=== PATIENT | male | born 1950 | race Caucasian/White ===

== ENCOUNTER 2017-02-01 16:54 | Emergency (ER) | payer OTHER ==
[~2017-02-01] VITALS: Ht 172.7 cm; Wt 76.0 kg
[~2017-02-01 16:54] MED LIST: ASPI-1061 PO; BUSP10TA23 PO; COMB5OS OS; CYCL10 PO; ERGO500013 PO; FLUO-191 PO; HYDR25TA PO; INSLAN SQ; LOSA50TA37 PO; METF850T2 PO; TIMO10DR28 OU
[2017-02-01 18:16] LABS: GLUCOSE,POINT OF CARE 263 MG/DL (70-110)
[2017-02-01 21:14] VITALS: BP 159/105
== END 2017-02-01 21:19 | disposition home or self-care (01) ==
LOC: EMS 16:55
DX: S06.0X0A Concussion without loss of consciousness, initial encounter (principal); S93.411A Sprain of calcaneofibular ligament of right ankle, initial encounter; E11.65 Type 2 diabetes mellitus with hyperglycemia; I10 Essential (primary) hypertension; I25.2 Old myocardial infarction; Z91.14 Patient's other noncompliance with medication regimen; Z79.4 Long term (current) use of insulin; Z88.0 Allergy status to penicillin; W01.10XA Fall on same level from slipping, tripping and stumbling with subsequent striking against unspecified object, initial encounter; Y93.89 Activity, other specified; Y92.89 Other specified places as the place of occurrence of the external cause; Y99.8 Other external cause status
CPT/HCPCS: 70450; 82962; 99284

== ENCOUNTER 2017-03-15 11:28 | Emergency (ER) | payer OTHER ==
[~2017-03-15] VITALS: Ht 172.7 cm; Wt 79.5 kg
[2017-03-15 12:07] LABS: GLUCOSE COMMENT 1 Repeated; GLUCOSE,POINT OF CARE 432 MG/DL (70-110)
[2017-03-15] MEDS ORDERED: INSULIN REGULAR, HUMAN 100 UNITS/ML IVP ONE (12:30)
[2017-03-15] MEDS ORDERED: ACETAMINOPHEN 325 MG TABLET PO ONE (12:30)
[2017-03-15] MEDS ORDERED: SODIUM CHLORIDE 0.9% 1,000 ML IV ONE (12:30)
[2017-03-15 12:54] LABS: ANION GAP 7 mmol/L (8-16); CALCIUM, TOTAL 8.9 mg/dL (8.8-10.5); CARBON DIOXIDE 32 mmol/L (22-29); CHLORIDE 98 mmol/L (98-107); GLOMERULAR FILTR. RATE CALC > 60 mL/min (>60); SODIUM SERUM 137 mmol/L (136-145); UREA NITROGEN, BLOOD 16 mg/dL (7-18)
[2017-03-15 14:47] LABS: GLUCOSE,POINT OF CARE 206 MG/DL (70-110)
[2017-03-15 15:28] VITALS: BP 147/89
== END 2017-03-15 15:31 | disposition home or self-care (01) ==
LOC: EMS 11:29
DX: S83.91XA Sprain of unspecified site of right knee, initial encounter (principal); S91.001A Unspecified open wound, right ankle, initial encounter; E11.65 Type 2 diabetes mellitus with hyperglycemia; I10 Essential (primary) hypertension; I25.2 Old myocardial infarction; Z79.4 Long term (current) use of insulin; Z88.0 Allergy status to penicillin; X58.XXXA Exposure to other specified factors, initial encounter; Y93.89 Activity, other specified; Y92.89 Other specified places as the place of occurrence of the external cause; Y99.8 Other external cause status
CPT/HCPCS: 36415; 73562; 80048; 82948; 82962; 96361; 96374; 99285; J1815; J7030

== ENCOUNTER 2020-01-08 18:41 | Inpatient (IN) | payer MEDICARE, OTHER ==
[~2020-01-08] VITALS: Ht 182.9 cm; Wt 93.6 kg
[~2020-01-08 18:41] MED LIST changes: +AMLO5TAB9 PO; -ASPI-1061 PO; +ASPI81TA87 PO; -BUSP10TA23 PO; +CLIN300C3 PO; -COMB5OS OS; +COMB5OS OU; -CYCL10 PO; +DOXY100C PO; +DULO60CA44 PO; -ERGO500013 PO; -FLUO-191 PO; +FOLI1 PO; +GABA-531 PO; +HYDR-1475 PO; -HYDR25TA PO; -INSLAN SQ; +INSU100V12 SQ; +LOSA-88 PO; -LOSA50TA37 PO; +METF-445 PO; -METF850T2 PO; +MULT-248 PO; +NAPR-1025 PO; +THIA100T67 PO; -TIMO10DR28 OU
[2020-01-08] MEDS ORDERED: SODIUM CHLORIDE 0.9% 3,000 ML IV ONE (18:56)
[2020-01-08] MEDS ORDERED: 0.9% SODIUM CHLORIDE 10 ML SYRINGE IVP PRN (19:00)
[2020-01-08] MEDS ORDERED: COMB5OS OU (19:16)
[2020-01-08] MEDS ORDERED: ATOR40TA28 PO (19:16)
[2020-01-08] MEDS ORDERED: INSU100I3 SQ (19:16)
[2020-01-08] MEDS ORDERED: TICA90TA PO (19:16)
[2020-01-08] MEDS ORDERED: GUAIF10 PO (19:16)
[2020-01-08] MEDS ORDERED: BUPR200T34 PO (19:16)
[2020-01-08] MEDS ORDERED: PRAZ2 PO (19:16)
[2020-01-08] MEDS ORDERED: INSU100V12 SQ (19:16)
[2020-01-08] MEDS ORDERED: TRAM50TA4 PO (19:16)
[2020-01-08 19:41] LABS: BASOPHILS % (AUTO) 0.6 % (0.0-2.0); EOSINOPHILS % (AUTO) 0.1 % (1.0-6.0); HEMATOCRIT 39.7 % (41-53); HEMOGLOBIN 13.2 g/dL (13.5-17.5); LYMPHOCYTES # (AUTO) 0.9 K/uL (1.0-4.8); LYMPHOCYTES % (AUTO) 7.9 % (22.0-44.0); MEAN CORPUSCULAR HGB CONC 33.3 G/dL (31.0-37.0); MEAN CORPUSCULAR VOLUME 96 fL (80-100); MONOCYTES # (AUTO) 1.4 K/uL (0.1-1.0); MONOCYTES % (AUTO) 11.6 % (2.0-9.0); NEUTROPHILS # (AUTO) 9.4 K/uL (1.8-7.7); NEUTROPHILS % (AUTO) 79.8 % (40.0-70.0); PLATELET COUNT (AUTO) 179 K/uL (150-450); RED BLOOD CELL COUNT(AUTO) 4.13 MIL/uL (4.50-5.90); RED CELL DISTRIBUTION WIDTH 14.4 % (11.5-14.5)
[2020-01-08 19:50] LABS: ANION GAP 9 mmol/L (8-16); CALCIUM, TOTAL 9.3 mg/dL (8.8-10.5); CARBON DIOXIDE 29 mmol/L (22-29); CHLORIDE 94 mmol/L (98-107); CREATININE 1.44 mg/dL (0.60-1.30); GLOMERULAR FILTR. RATE CALC 49 mL/min (>60); GLUCOSE,RANDOM 118 mg/dL (70-110); POTASSIUM 4.1 mmol/L (3.5-5.1); SODIUM SERUM 132 mmol/L (136-145); UREA NITROGEN, BLOOD 27 mg/dL (7-18)
[2020-01-08 19:56] LABS: INR 1.1 (0.9-1.1); PROTHROMBIN TIME 11.6 SEC (9.4-11.6)
[2020-01-08 20:02] LABS: LACTIC ACID 2.8 mmol/L (0.4-2.0)
[2020-01-08 20:08] LABS: B-TYPE NATRIURETIC PEPTIDE 157 pg/mL (0-100)
[2020-01-08] MEDS ORDERED: LEVOFLOXACIN 750 MG/D5% WATER 150 ML IV ONE (20:15)
[2020-01-08 20:16] LABS: ALANINE AMINOTRANSFERASE 20 U/L (12-78); ALBUMIN 3.2 g/dL (3.4-5.0); ALKALINE PHOSPHATASE 70 U/L (46-116); ASPARTATE AMINOTRANSFERASE 18 U/L (15-37); BILIRUBIN,TOTAL 0.7 mg/dL (0.1-1.0); CREATINE KINASE, TOTAL ONLY 78 U/L (39-308); TOTAL PROTEIN, SERUM 7.2 g/dL (6.4-8.2)
[2020-01-08 20:44] LABS: INFLUENZA TYPE A NEGATIVE FOR TYPE A (NEGATIVE); INFLUENZA TYPE B NEGATIVE FOR TYPE B (NEGATIVE)
[2020-01-08] MEDS ORDERED: ACETAMINOPHEN 325 MG TABLET PO PRN (20:45)
[2020-01-08] MEDS ORDERED: DEXTROSE 50%-WATER 25 GM/50 ML SYRINGE IVP PRN (20:45)
[2020-01-08] MEDS ORDERED: SODIUM CHLORIDE 0.45% 1,000 ML IV ONE (20:45)
[2020-01-08] MEDS ORDERED: *CLINICAL-LEVOFLOXACIN IVPB DOSING CLINICAL ONE (20:45)
[2020-01-08 21:08] LABS: APPEARANCE,URINE CLOUDY (CLEAR); BILIRUBIN,URINE NEGATIVE (NEGATIVE); GLUCOSE, URINE (UA) NEGATIVE (NEGATIVE); KETONES,URINE TRACE mg/dL (NEGATIVE); LEUKOCYTE ESTERASE ,URINE NEGATIVE (NEGATIVE); NITRATE,URINE NEGATIVE (NEGATIVE); OCCULT BLOOD,URINE TRACE (NEGATIVE); PH,URINE 5.5 (5.0-8.0); PROTEIN,URINE NEGATIVE (NEGATIVE)
[2020-01-08 21:20] LABS: BACTERIA,URINE Few /HPF (None Seen); SQUAMOUS EPITHELIAL CELL,UR Few /LPF (None Seen); WBC,URINE 0-2 /HPF (0-5)
[2020-01-08 21:45] VITALS: BP 140/88
[2020-01-08] MEDS: DOCUSATE SODIUM 100 MG CAPSULE PO SCH (22:38)
[2020-01-08] MEDS: TICAGRELOR 90 MG TABLET PO SCH (22:39)
[2020-01-08] MEDS: PRAZOSIN HCL 2 MG CAPSULE PO SCH (22:39)
[2020-01-08] MEDS: CARVEDILOL 6.25 MG TABLET PO SCH (22:39)
[2020-01-08] MEDS: HEPARIN SODIUM,PORCINE 5,000 UNITS/ML VIAL SQ SCH (22:39)
[2020-01-08] MEDS ORDERED: PNEUMOCOCCAL VACCINE POLYVALENT 0.5 ML VIAL [PPSV23] IM ONE (23:45)
[2020-01-08] MEDS ORDERED: INFLUENZA VIRUS VACCINE QVS 2019-20 (3YR+)/PF 60 MCG/0.5 ML SYRINGE IM ONE (23:45)
[2020-01-08 23:56] VITALS: BP 119/74
[2020-01-09 05:11] VITALS: BP 128/79
[2020-01-09 06:39] LABS: GLUCOMETER DEV NAME(LOC) 5N.2; GLUCOSE,POINT OF CARE 121 MG/DL (70-110)
[2020-01-09 06:40] LABS: GLUCOMETER DEV NAME(LOC) 5N.1; GLUCOSE,POINT OF CARE 114 MG/DL (70-110)
[2020-01-09 07:07] VITALS: BP 128/82
[2020-01-09] MEDS: TICAGRELOR 90 MG TABLET PO SCH ×2 (08:15→20:55)
[2020-01-09] MEDS: HEPARIN SODIUM,PORCINE 5,000 UNITS/ML VIAL SQ SCH ×2 (08:15→21:50)
[2020-01-09] MEDS: ATORVASTATIN CALCIUM 20 MG TABLET PO SCH (08:15)
[2020-01-09] MEDS: ASPIRIN 81 MG CHEWABLE TABLET PO SCH (08:15)
[2020-01-09] MEDS: DOCUSATE SODIUM 100 MG CAPSULE PO SCH ×2 (08:15→20:55)
[2020-01-09] MEDS: FAMOTIDINE 20 MG TABLET PO SCH (08:15)
[2020-01-09] MEDS: CARVEDILOL 6.25 MG TABLET PO SCH ×2 (08:15→20:55)
[2020-01-09 10:57] VITALS: BP 122/76
[2020-01-09 15:31] VITALS: BP 148/72
[2020-01-09 17:28] LABS: GLUCOMETER DEV NAME(LOC) 5N.2; GLUCOSE,POINT OF CARE 135 MG/DL (70-110)
[2020-01-09 19:27] VITALS: BP 148/98
[2020-01-09] MEDS: INSULIN LISPRO 100 UNITS/ML SQ PRN (20:55)
[2020-01-09] MEDS: PRAZOSIN HCL 2 MG CAPSULE PO SCH (20:56)
[2020-01-09] MEDS ORDERED: LEVOFLOXACIN 750 MG/D5% WATER 150 ML IV SCH (21:00)
[2020-01-09] MEDS ORDERED: SODIUM CHLORIDE 0.9% 250 ML IV ONE (21:39)
[2020-01-09 23:53] VITALS: BP 128/84
[2020-01-10 00:41] LABS: GLUCOMETER DEV NAME(LOC) 5N.2; GLUCOSE,POINT OF CARE 152 MG/DL (70-110)
[2020-01-10 00:41] LABS: GLUCOMETER DEV NAME(LOC) 5S.2A; GLUCOSE,POINT OF CARE 108 MG/DL (70-110)
[2020-01-10 05:23] VITALS: BP 148/92
[2020-01-10] MEDS: INSULIN LISPRO 100 UNITS/ML SQ PRN ×3 (05:52→20:19)
[2020-01-10 06:44] LABS: GLUCOMETER DEV NAME(LOC) 5S.2A; GLUCOSE,POINT OF CARE 141 MG/DL (70-110)
[2020-01-10 06:58] LABS: BASOPHILS % (AUTO) 0.5 % (0.0-2.0); EOSINOPHILS % (AUTO) 0.6 % (1.0-6.0); HEMATOCRIT 36.6 % (41-53); HEMOGLOBIN 12.4 g/dL (13.5-17.5); LYMPHOCYTES # (AUTO) 0.8 K/uL (1.0-4.8); LYMPHOCYTES % (AUTO) 11.3 % (22.0-44.0); MEAN CORPUSCULAR HEMOGLOBIN 32.5 pg (26.0-34.0); MEAN CORPUSCULAR VOLUME 96 fL (80-100); MONOCYTES # (AUTO) 0.9 K/uL (0.1-1.0); MONOCYTES % (AUTO) 11.9 % (2.0-9.0); NEUTROPHILS # (AUTO) 5.7 K/uL (1.8-7.7); NEUTROPHILS % (AUTO) 75.7 % (40.0-70.0); PLATELET COUNT (AUTO) 196 K/uL (150-450); RED BLOOD CELL COUNT(AUTO) 3.82 MIL/uL (4.50-5.90)
[2020-01-10 07:02] LABS: ANION GAP 5 mmol/L (8-16); CALCIUM, TOTAL 8.4 mg/dL (8.8-10.5); CARBON DIOXIDE 32 mmol/L (22-29); CHLORIDE 96 mmol/L (98-107); CREATININE 1.04 mg/dL (0.60-1.30); GLOMERULAR FILTR. RATE CALC > 60 mL/min (>60); GLUCOSE,RANDOM 143 mg/dL (70-110); POTASSIUM 3.9 mmol/L (3.5-5.1); SODIUM SERUM 133 mmol/L (136-145); UREA NITROGEN, BLOOD 17 mg/dL (7-18)
[2020-01-10 07:50] VITALS: BP 159/98
[2020-01-10] MEDS: TICAGRELOR 90 MG TABLET PO SCH ×2 (08:04→20:16)
[2020-01-10] MEDS: FAMOTIDINE 20 MG TABLET PO SCH (08:04)
[2020-01-10] MEDS: ATORVASTATIN CALCIUM 20 MG TABLET PO SCH (08:04)
[2020-01-10] MEDS: ASPIRIN 81 MG CHEWABLE TABLET PO SCH (08:04)
[2020-01-10] MEDS: DOCUSATE SODIUM 100 MG CAPSULE PO SCH ×2 (08:04→20:16)
[2020-01-10] MEDS: CARVEDILOL 6.25 MG TABLET PO SCH ×2 (08:04→20:16)
[2020-01-10] MEDS: HEPARIN SODIUM,PORCINE 5,000 UNITS/ML VIAL SQ SCH ×2 (08:05→20:20)
[2020-01-10 11:24] VITALS: BP 151/94
[2020-01-10 16:17] VITALS: BP 160/100
[2020-01-10 16:21] LABS: GLUCOMETER DEV NAME(LOC) 5N.2; GLUCOSE,POINT OF CARE 183 MG/DL (70-110)
[2020-01-10] MEDS: LEVOFLOXACIN 500 MG TABLET PO SCH (17:02)
[2020-01-10 19:33] VITALS: BP 165/105
[2020-01-10] MEDS: PRAZOSIN HCL 2 MG CAPSULE PO SCH (20:16)
[2020-01-11 00:05] VITALS: BP 126/80
[2020-01-11 05:12] VITALS: BP 127/95
[2020-01-11 05:43] LABS: GLUCOMETER DEV NAME(LOC) 5N.2; GLUCOSE,POINT OF CARE 158 MG/DL (70-110)
[2020-01-11 07:42] VITALS: BP 130/96
[2020-01-11] MEDS: HEPARIN SODIUM,PORCINE 5,000 UNITS/ML VIAL SQ SCH (09:00)
[2020-01-11] MEDS: CARVEDILOL 6.25 MG TABLET PO SCH (10:34)
[2020-01-11] MEDS: TICAGRELOR 90 MG TABLET PO SCH (10:34)
[2020-01-11] MEDS: ATORVASTATIN CALCIUM 20 MG TABLET PO SCH (10:34)
[2020-01-11] MEDS: LEVOFLOXACIN 500 MG TABLET PO SCH (10:34)
[2020-01-11] MEDS: FAMOTIDINE 20 MG TABLET PO SCH (10:35)
[2020-01-11] MEDS: ASPIRIN 81 MG CHEWABLE TABLET PO SCH (10:35)
[2020-01-11] MEDS: DOCUSATE SODIUM 100 MG CAPSULE PO SCH (10:35)
[2020-01-11 11:23] VITALS: BP 177/78
[2020-01-11 11:40] LABS: GLUCOMETER DEV NAME(LOC) 5S.2A; GLUCOSE,POINT OF CARE 130 MG/DL (70-110)
[2020-01-11 13:30] LABS: GLUCOMETER DEV NAME(LOC) 5N.2; GLUCOSE,POINT OF CARE 163 MG/DL (70-110)
== END 2020-01-11 13:20 | DRG 871 ==
LOC: EMS 18:41 → 5S 20:00
PROVIDERS: ADMIT Internal Medicine; ATTEND Internal Medicine
DX: A41.9 Sepsis, unspecified organism (principal); J18.9 Pneumonia, unspecified organism; T83.83XA Hemorrhage due to genitourinary prosthetic devices, implants and grafts, initial encounter; Y95 Nosocomial condition; F32.9 Major depressive disorder, single episode, unspecified; I25.10 Atherosclerotic heart disease of native coronary artery without angina pectoris; E11.9 Type 2 diabetes mellitus without complications; F03.90 Unspecified dementia, unspecified severity, without behavioral disturbance, psychotic disturbance, mood disturbance, and anxiety; I10 Essential (primary) hypertension; N28.9 Disorder of kidney and ureter, unspecified; Y84.6 Urinary catheterization as the cause of abnormal reaction of the patient, or of later complication, without mention of misadventure at the time of the procedure; Z79.4 Long term (current) use of insulin; Z88.0 Allergy status to penicillin; Z79.899 Other long term (current) drug therapy; Z79.82 Long term (current) use of aspirin; I25.2 Old myocardial infarction; Y92.89 Other specified places as the place of occurrence of the external cause
CPT/HCPCS: 70450; 83605; 84145; 87040; 87081; 87804; 93005; 99291; J1644; J1956; J7030; J7050

== ENCOUNTER 2025-08-29 14:47 | Inpatient (IN) | payer MEDICARE, MEDICAID ==
[~2025-08-29] VITALS: Ht 172.7 cm; Wt 43.5 kg
[~2025-08-29 14:47] MED LIST changes: -AMLO5TAB9 PO; +ATOR40TA28 PO; +BRIM5DRO28 OU; +BUPR200T34 PO; -CLIN300C3 PO; -COMB5OS OU; -DOXY100C PO; -DULO60CA44 PO; +FOLI-130 PO; -FOLI1 PO; +GABA-1181 PO; -GABA-531 PO; +GUAI100L96 PO; -HYDR-1475 PO; +INSU100I3 SQ; +LOSA-382 PO; -LOSA-88 PO; -MULT-248 PO; -NAPR-1025 PO; +PRAZ2 PO; -THIA100T67 PO; +TICA90TA PO; +TRAM50TA5 PO
[2025-08-29 15:52] LABS: PLATELET COUNT (AUTO) 214 K/uL (150-450); RED BLOOD CELL COUNT(AUTO) 3.92 MIL/uL (4.50-5.90); RED CELL DISTRIBUTION WIDTH 15.4 % (11.5-14.5); WHITE BLOOD COUNT (AUTO) 5.3 K/uL (4.5-11.0)
[2025-08-29 16:00] LABS: CALCIUM, TOTAL 9.2 mg/dL (8.8-10.5); CREATININE 1.00 mg/dL (0.60-1.30); GLOMERULAR FILTR. RATE CALC > 60 mL/min (>60); GLUCOSE,RANDOM 195 mg/dL (70-110); SODIUM SERUM 138 mmol/L (136-145); UREA NITROGEN, BLOOD 26 mg/dL (7-18)
[2025-08-29 18:58] LABS: COVID AG,FIA SOURCE NASAL SWAB
[2025-08-29 19:06] LABS: SARS-COV2 (COVID) ANTIGEN,FIA Negative (Negative)
[2025-08-29 23:07] LABS: APPEARANCE,URINE HAZY (CLEAR); GLUCOSE, URINE (UA) NEGATIVE (NEGATIVE); LEUKOCYTE ESTERASE ,URINE NEGATIVE (NEGATIVE); NITRATE,URINE NEGATIVE (NEGATIVE); OCCULT BLOOD,URINE SMALL (NEGATIVE); PH,URINE DRUG SCREEN 5.5 (5.0-8.0); SPECIFIC GRAVITIY, URINE 1.016 (1.003-1.030)
[2025-08-29 23:14] LABS: AMPHET/METH SCREEN,URINE NEGATIVE (NEGATIVE); BARBITURATE SCREEN, URINE NEGATIVE (NEGATIVE); CANNABINOID SCREEN,URINE NEGATIVE (NEGATIVE); COCAINE SCREEN,URINE NEGATIVE (NEGATIVE); METHADONE SCREEN, URINE NEGATIVE (NEGATIVE)
[2025-08-29 23:15] LABS: ALCOHOL, URINE DRUG SCREEN NEGATIVE (NEGATIVE)
[2025-08-29 23:19] LABS: SQUAMOUS EPITHELIAL CELL,UR Rare /LPF (None Seen)
[2025-08-30] MEDS: ZOLPIDEM TARTRATE 10 MG TABLET PO PRN (02:48)
[2025-08-30] MEDS ORDERED: FERR324T12 PO (18:39)
[2025-08-30] MEDS ORDERED: SERT-158 PO (18:39)
[2025-08-30] MEDS ORDERED: METF750T57 PO (18:39)
[2025-08-30 18:55] LABS: GLUCOMETER DEV NAME(LOC) ER.7; GLUCOSE,POINT OF CARE 148 MG/DL (70-110)
[2025-08-30] MEDS ORDERED: MAG HYDROX/ALUMINUM HYD/SIMETH ES 30 ML SUSPENSION UDCUP PO PRN (21:00)
[2025-08-30] MEDS ORDERED: NICOTINE 14 MG/24 HOUR PATCH TD PRN (21:00)
[2025-08-30] MEDS ORDERED: LOPERAMIDE HCL 2 MG CAPSULE PO PRN (21:00)
[2025-08-30] MEDS ORDERED: ACETAMINOPHEN 325 MG TABLET PO PRN (21:00)
[2025-08-30] MEDS ORDERED: GuaiFENesin/D-METHORPHAN [SUGAR-FREE] 200-20MG/10 ML SYRUP UDCUP PO PRN (21:00)
[2025-08-30] MEDS ORDERED: ONDANSETRON 4 MG TABLET PO PRN (21:00)
[2025-08-30] MEDS ORDERED: PETROLATUM,WHITE 28 GM JELLY TP PRN (21:00)
[2025-08-30] MEDS ORDERED: GLUCAGON,HUMAN RECOMBINANT 1 MG VIAL IM PRN (21:00)
[2025-08-30] MEDS ORDERED: MAGNESIUM HYDROXIDE SUSPENSION 30 ML UDCUP PO PRN (21:00)
[2025-08-30] MEDS ORDERED: ALBUTEROL SULFATE HFA 90 MCG/PUFF 8 GM INHALER IH PRN (21:00)
[2025-08-30] MEDS: TICAGRELOR 90 MG TABLET PO SCH (23:20)
[2025-08-30] MEDS: ATORVASTATIN CALCIUM 40 MG TABLET PO SCH (23:20)
[2025-08-30 23:36] LABS: GLUCOMETER DEV NAME(LOC) ER.7; GLUCOSE,POINT OF CARE 108 MG/DL (70-110)
[2025-08-31 05:41] LABS: APPEARANCE,URINE CLEAR (CLEAR); GLUCOSE, URINE (UA) NEGATIVE (NEGATIVE); LEUKOCYTE ESTERASE ,URINE NEGATIVE (NEGATIVE); NITRATE,URINE NEGATIVE (NEGATIVE); OCCULT BLOOD,URINE NEGATIVE (NEGATIVE); PH,URINE DRUG SCREEN 6.5 (5.0-8.0); SPECIFIC GRAVITIY, URINE 1.009 (1.003-1.030)
[2025-08-31 05:48] LABS: AMPHET/METH SCREEN,URINE NEGATIVE (NEGATIVE); BARBITURATE SCREEN, URINE NEGATIVE (NEGATIVE); CANNABINOID SCREEN,URINE NEGATIVE (NEGATIVE); COCAINE SCREEN,URINE NEGATIVE (NEGATIVE); METHADONE SCREEN, URINE NEGATIVE (NEGATIVE)
[2025-08-31 05:53] LABS: ALCOHOL, URINE DRUG SCREEN NEGATIVE (NEGATIVE)
[2025-08-31 06:10] LABS: GLUCOMETER DEV NAME(LOC) ER.7; GLUCOSE,POINT OF CARE 118 MG/DL (70-110)
[2025-08-31 06:16] LABS: PLATELET COUNT (AUTO) 227 K/uL (150-450); RED BLOOD CELL COUNT(AUTO) 4.11 MIL/uL (4.50-5.90); RED CELL DISTRIBUTION WIDTH 15.4 % (11.5-14.5); WHITE BLOOD COUNT (AUTO) 5.4 K/uL (4.5-11.0)
[2025-08-31 06:40] LABS: ASPARTATE AMINOTRANSFERASE 16 U/L (15-37); CALCIUM, TOTAL 9.3 mg/dL (8.8-10.5); CHOL/HDL RATIO 2.8 (4.2-7.3); CREATININE 0.51 mg/dL (0.60-1.30); GLOMERULAR FILTR. RATE CALC > 60 mL/min (>60); GLUCOSE,RANDOM 132 mg/dL (70-110); LDL CHOL (CALC.) 68 mg/dL (0-130); SODIUM SERUM 139 mmol/L (136-145); TOTAL PROTEIN, SERUM 7.0 g/dL (6.4-8.2); UREA NITROGEN, BLOOD 16 mg/dL (7-18)
[2025-08-31] MEDS ORDERED: MetFORMIN HCL 750 MG ER TABLET PO SCH (08:00)
[2025-08-31] MEDS: FERROUS GLUCONATE 324 MG TABLET PO SCH (09:00)
[2025-08-31] MEDS: ASPIRIN 81 MG DR TABLET PO SCH (09:23)
[2025-08-31] MEDS: DOCUSATE SODIUM 100 MG CAPSULE PO PRN (09:23)
[2025-08-31] MEDS: LOSARTAN POTASSIUM 50 MG TABLET PO SCH (09:23)
[2025-08-31 10:06] VITALS: O2SAT 97
[2025-08-31 12:34] VITALS: BP 113/81; PULSE 77; RESP 18; TEMP 97.8; O2SAT 97
[2025-08-31] MEDS ORDERED: INFLUENZA VIRUS VACCINE TVS (6MO+) 2025-26/PF 45 MCG/0.5 ML SYRINGE IM. ONE (12:45)
[2025-08-31] MEDS ORDERED: PNEUMOCOCCAL VACCINE POLYVALENT 0.5 ML SYRINGE [PPSV23] IM. ONE (13:00)
[2025-08-31] MEDS: SERTRALINE HCL 50 MG TABLET PO SCH (14:58)
[2025-08-31 20:00] VITALS: BP 112/83; PULSE 79; RESP 18; TEMP 97.5; O2SAT 99
[2025-08-31 21:25] LABS: GLUCOMETER DEV NAME(LOC) 3E.I 2; GLUCOSE,POINT OF CARE 161 MG/DL (70-110)
[2025-08-31] MEDS: INSULIN LISPRO 100 UNITS/ML SQ PRN (21:37)
[2025-09-01 06:15] LABS: GLUCOMETER DEV NAME(LOC) 3E.I 2; GLUCOSE,POINT OF CARE 114 MG/DL (70-110)
[2025-09-01 10:10] VITALS: BP 113/71; PULSE 81; RESP 18; TEMP 97.6; O2SAT 96
[2025-09-01 12:01] LABS: GLUCOMETER DEV NAME(LOC) 3E.I 2; GLUCOSE,POINT OF CARE 153 MG/DL (70-110)
[2025-09-01 17:40] LABS: GLUCOMETER DEV NAME(LOC) 3E.I 2; GLUCOSE,POINT OF CARE 172 MG/DL (70-110)
[2025-09-01 20:35] LABS: GLUCOMETER DEV NAME(LOC) 3E.I 2; GLUCOSE,POINT OF CARE 141 MG/DL (70-110)
[2025-09-01 20:39] VITALS: BP 119/81; PULSE 81; RESP 18; TEMP 97.8; O2SAT 96
[2025-09-02 05:45] LABS: GLUCOMETER DEV NAME(LOC) 3E.I 2; GLUCOSE,POINT OF CARE 186 MG/DL (70-110)
[2025-09-02 08:05] VITALS: BP 118/72; PULSE 70; RESP 17; TEMP 97.3; O2SAT 99
[2025-09-02 11:51] LABS: GLUCOMETER DEV NAME(LOC) 3E.I 2; GLUCOSE,POINT OF CARE 97 MG/DL (70-110)
[2025-09-02 17:26] LABS: GLUCOMETER DEV NAME(LOC) 3E.I 2; GLUCOSE,POINT OF CARE 140 MG/DL (70-110)
[2025-09-02 20:45] LABS: GLUCOMETER DEV NAME(LOC) 3E.I 2; GLUCOSE,POINT OF CARE 139 MG/DL (70-110)
[2025-09-02 22:53] VITALS: BP 126/80; PULSE 76; RESP 18; TEMP 98.1; O2SAT 98
[2025-09-03 06:10] LABS: GLUCOMETER DEV NAME(LOC) 3E.I 2; GLUCOSE,POINT OF CARE 109 MG/DL (70-110)
[2025-09-03 11:26] LABS: GLUCOMETER DEV NAME(LOC) 3E.I 2; GLUCOSE,POINT OF CARE 136 MG/DL (70-110)
[2025-09-03 16:10] VITALS: BP 116/79; PULSE 80; RESP 18; TEMP 97.8; O2SAT 98
[2025-09-03 17:36] LABS: GLUCOMETER DEV NAME(LOC) 3E.I 2; GLUCOSE,POINT OF CARE 127 MG/DL (70-110)
[2025-09-03 20:44] VITALS: BP 133/96; PULSE 72; RESP 16; TEMP 97.6; O2SAT 96
[2025-09-03 21:00] LABS: GLUCOMETER DEV NAME(LOC) 3E.I 2; GLUCOSE,POINT OF CARE 119 MG/DL (70-110)
[2025-09-04 06:01] LABS: GLUCOMETER DEV NAME(LOC) 3E.I 2; GLUCOSE,POINT OF CARE 117 MG/DL (70-110)
[2025-09-04 11:31] LABS: GLUCOMETER DEV NAME(LOC) 3EX.2; GLUCOSE,POINT OF CARE 175 MG/DL (70-110)
[2025-09-04 12:11] VITALS: BP 134/89; PULSE 68; RESP 18; TEMP 97.8; O2SAT 96
[2025-09-04] MEDS ORDERED: FERR324T23 PO (15:38)
[2025-09-04] MEDS ORDERED: METF-1185 PO (15:38)
[2025-09-04 17:36] LABS: GLUCOMETER DEV NAME(LOC) 3EX.2; GLUCOSE,POINT OF CARE 138 MG/DL (70-110)
== END 2025-09-04 18:30 | DRG 885 ==
LOC: EMS 14:47 → 3EX 08-31 10:21
PROVIDERS: ADMIT Psychiatry & Neurology Child & Adolescent Psychiatry; ATTEND Psychiatry & Neurology Child & Adolescent Psychiatry
PROC: GZ56ZZZ Individual Psychotherapy, Supportive (ICD-10-PCS; principal; 2025-08-31)
PROC: GZHZZZZ Group Psychotherapy (ICD-10-PCS; 2025-08-31)
PROC: GZ58ZZZ Individual Psychotherapy, Cognitive-Behavioral (ICD-10-PCS; 2025-08-31)
DX: F33.2 Major depressive disorder, recurrent severe without psychotic features (principal); R45.851 Suicidal ideations; E11.9 Type 2 diabetes mellitus without complications; I10 Essential (primary) hypertension; Z20.822 Contact with and (suspected) exposure to COVID-19; D63.8 Anemia in other chronic diseases classified elsewhere; I25.10 Atherosclerotic heart disease of native coronary artery without angina pectoris; F41.9 Anxiety disorder, unspecified; E78.5 Hyperlipidemia, unspecified; I25.2 Old myocardial infarction; Z79.82 Long term (current) use of aspirin; Z90.49 Acquired absence of other specified parts of digestive tract; Z79.84 Long term (current) use of oral hypoglycemic drugs; Z79.899 Other long term (current) drug therapy; Z86.73 Personal history of transient ischemic attack (TIA), and cerebral infarction without residual deficits; Z88.0 Allergy status to penicillin; Z79.4 Long term (current) use of insulin
CPT/HCPCS: 80048; 80053; 80061; 80307; 81001; 81003; 82962; 83036; 84443; 85025; 87081; 99285; G0378; G0480